=== PATIENT | male | born 2005 | race African-American/Black ===

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

== ENCOUNTER 2025-02-26 13:05 | Emergency (ER) | payer OTHER, SELFPAY | END 2025-02-26 14:03 | disposition home or self-care (01) | LOC: NAV ERS 13:05 | DX: R11.2 Nausea with vomiting, unspecified (principal); R19.7 Diarrhea, unspecified; B34.9 Viral infection, unspecified; F17.290 Nicotine dependence, other tobacco product, uncomplicated | CPT/HCPCS: 87426; 99284; Q0162 ==

== ENCOUNTER 2025-03-04 13:44 | Emergency (ER) | payer SELFPAY | END 2025-03-04 14:19 | disposition home or self-care (01) | LOC: NAV ERS 13:44 | DX: S60.132A Contusion of left middle finger with damage to nail, initial encounter (principal); M79.644 Pain in right finger(s); F17.290 Nicotine dependence, other tobacco product, uncomplicated; W61.39XA Other contact with chicken, initial encounter; Y92.79 Other farm location as the place of occurrence of the external cause; Y93.K9 Activity, other involving animal care | CPT/HCPCS: 99283 ==

== ENCOUNTER 2025-04-08 05:03 | Emergency (ER) | payer SELFPAY | END 2025-04-08 05:40 | disposition home or self-care (01) | LOC: NAV ERS 05:03 | DX: K58.1 Irritable bowel syndrome with constipation (principal); K58.0 Irritable bowel syndrome with diarrhea; F17.290 Nicotine dependence, other tobacco product, uncomplicated | CPT/HCPCS: 99283 ==